=== PATIENT | male | born 1965 | race Caucasian/White ===

== ENCOUNTER 2024-07-16 06:50 | Day surgery (SDC) | payer MEDICAID ==
[2024-07-09 15:14] LABS: BASOPHILS % (AUTO) 0.4 % (0-1); EOSINOPHILS # (AUTO) 0.3 X10'3 (0-0.9); EOSINOPHILS % (AUTO) 2.1 % (0-6); LYMPHOCYTES # (AUTO) 3.4 X10'3 (1.1-4.8); LYMPHOCYTES % (AUTO) 24.9 % (21-51); MEAN CORPUSCULAR HEMOGLOBIN 30.8 PG (27.0-31.0); MEAN CORPUSCULAR HGB CONC 34.7 g/dL (33.0-36.5); MEAN CORPUSCULAR VOLUME 88.8 FL (78-98); MEAN PLATELET VOLUME 7.1 FL (7.4-10.4); MONOCYTES # (AUTO) 1.2 X10'3 (0-0.9); MONOCYTES % (AUTO) 8.9 % (2-12); NEUTROPHILS # (AUTO) 8.6 X10'3 (1.8-7.7); NEUTROPHILS % (AUTO) 63.7 % (42-75); PRE OP HEMATOCRIT 41.1 % (42.0-52.0); PRE OP HEMOGLOBIN 14.3 g/dL (14.0-17.9); PRE OP PLATELET COUNT 274 X10'3 (140-440); PRE OP WHITE BLOOD COUNT 13.4 10'3 (4.8-10.8); RED BLOOD COUNT 4.63 X10'6 (4.70-6.10); RED CELL DISTRIBUTION WIDTH 13.4 % (11.5-14.5)
[2024-07-09 15:24] LABS: ALBUMIN 3.9 G/DL (3.4-5.0); ALBUMIN/GLOBULIN RATIO 0.9 (1.1-1.5); ALKALINE PHOSPHATASE 107 IU/L (46-116); BLOOD UREA NITROGEN 12 MG/DL (7-18); BUN/CREATININE RATIO 13.5 (10.0-20.0); CHLORIDE 102 MMOL/L (99-107); CREATININE 0.89 MG/DL (0.60-1.10); PRE OP ALT 27 U/L (30-65); PRE OP ANION GAP 10 (8-16); PRE OP AST 15 U/L (10-37); PRE OP BILIRUB, TOTAL 0.8 MG/DL (0.0-1.0); PRE OP GLUCOSE 86 MG/DL (70-104); PRE OP POTASSIUM 3.5 MMOL/L (3.4-5.1); PRE OP SODIUM 138 MMOL/L (135-145); TOTAL CARBON DIOXIDE 26.1 MMOL/L (24-32); TOTAL PROTEIN 8.3 G/DL (6.4-8.2); eGFR 88 ML/MIN
[~2024-07-16] VITALS: Ht 180.3 cm; Wt 100.0 kg
[2024-07-16] VITALS (10 sets, daily range): BP systolic 124–154; BP diastolic 65–97; PULSE 72–90; RESP 13–18; TEMP 97.8; O2SAT 92–100
[~2024-07-16 06:50] MED LIST: ATOR20TA PO; BACL20TA2 PO; LISI20TA28 PO; OMEP40CA21 PO; TOPI-95 PO
[2024-07-16] MEDS ORDERED: LIDOcaine 1% 30ml preserv. free vial ONE (06:52)
[2024-07-16] MEDS ORDERED: BUPIVAcaine 2.5mg/ml inj 50ml vial (contains preservative) ONE ×2 (06:53→08:58)
[2024-07-16] MEDS: famotidine 20mg tablet PO ONE (07:23)
[2024-07-16] MEDS: ringers solution, lacted 1,000 ML IV SCH (07:23)
[2024-07-16] MEDS: ceFAZolin 2gm in dextrose, iso 50 ML IV ONE (07:23)
[2024-07-16] MEDS ORDERED: hydrALAZINE 20mg/ml inj. IV PRN (08:10)
[2024-07-16] MEDS ORDERED: labetalol 20mg/4ml (5mg/ml) syringe IV PRN (08:10)
[2024-07-16] MEDS ORDERED: fentaNYL/PF 50MCG/1 ML 2ML syringe IV PRN ×2 (08:10)
[2024-07-16] MEDS ORDERED: morphine 2 MG/ML inj. syringe IV PRN (08:10)
[2024-07-16] MEDS ORDERED: ondansetron/PF 4mg/2ml inj IV PRN (08:10)
[2024-07-16] MEDS ORDERED: ringers solution, lacted 1,000 ML IV SCH (08:10)
[2024-07-16] MEDS: midazolam 1 mg/ML 2ml injection IV ONE (08:47)
[2024-07-16] MEDS ORDERED: BUPIVACAINE liposomal/PF 13.3 MG/ML 10mL vial IM ONE (08:58)
[2024-07-16] MEDS ORDERED: sevoflurane 250ml liquid IH ONE (09:05)
[2024-07-16] MEDS ORDERED: MIDAZolam 1 MG/ML 5ML VIAL ONE (09:14)
[2024-07-16] MEDS ORDERED: fentaNYL/PF 50MCG/1 ML 2ML syringe ONE (09:14)
[2024-07-16] MEDS ORDERED: acetaminophen 1,000mg/100ml IV 100 ML IV ONE (09:23)
[2024-07-16] MEDS ORDERED: propofol inj 20 ML IV ONE (09:23)
[2024-07-16] MEDS ORDERED: LIDOcaine 2% (20mg/ml) 5ml vial ONE (09:23)
[2024-07-16] MEDS ORDERED: ondansetron/PF 4mg/2ml inj ONE (09:23)
[2024-07-16] MEDS ORDERED: sugammadex 200mg/2ml injection IV ONE (09:24)
[2024-07-16] MEDS ORDERED: ePHEDrine 50MG/ML INJ. ONE (09:46)
[2024-07-16] MEDS: morphine 4 MG/ML inj SYRINge IV PRN (10:38)
[2024-07-16] MEDS: acetaminophen 1,000mg/100ml IV 100 ML IV ONE (11:20)
[2024-07-16] MEDS: oxyCODONE/APAP 5-325mg tablet PO PRN (11:37)
== END 2024-07-16 12:20 | disposition home or self-care (01) ==
LOC: PAS 06:50
PROVIDERS: ATTEND Surgery
DX: K43.6 Other and unspecified ventral hernia with obstruction, without gangrene (principal); G89.18 Other acute postprocedural pain; E78.5 Hyperlipidemia, unspecified; I10 Essential (primary) hypertension; Z98.890 Other specified postprocedural states; K21.9 Gastro-esophageal reflux disease without esophagitis; F41.8 Other specified anxiety disorders; Z79.899 Other long term (current) drug therapy; Z72.89 Other problems related to lifestyle
CPT/HCPCS: 36415; 49594; 64488; 80053; 82948; 85025; 93005; C1776; C1781; J0131; J0666; J0690; J1100; J2003; J2250; J2270; J2405; J2704; J3010; J3490; J7030; J7120; Z7506; Z7508; Z7512; A4215; A4618